=== PATIENT | female | born 1985 | race Caucasian/White ===

== ENCOUNTER 2023-10-01 08:49 | Emergency (ER) | payer SELFPAY ==
--- NOTE | 2023-10-01 09:47 | ED Physician Documentation ---
PD HPI HEADACHE - Stated complaint Stated Complaint: HIGH BP/DIZZY - Chief complaint Chief Complaint: General - History obtained from History obtained from: Patient PD PAST MEDICAL HISTORY - Past Medical History Past Medical History: Yes Cardiovascular: Hypertension (has been borderline or mild hypertension for awhile with health care visits or when takes it at home if feeling stressed. Does not check it when well typically. ), Other Respiratory: None Neuro: None Psych: Depression, Anxiety Other Past Medical History: WPW- corrected at 8 yrs old - Past Surgical History Past Surgical History: Yes Cardiovascular: Other HEENT: Other - Present Medications Home Medications: Ambulatory Orders Medication Instructions Recorded Confirmed Propranolol [Inderal] 10 mg PO DAILY #30 tablet 10/01/23 - Allergies Allergies/Adverse Reactions: Allergies Allergy/AdvReac Type Severity Reaction Status Date / Time No Known Drug Allergies Allergy Verified 10/01/23 08:59 - Living Situation Living Situation: reports: Alone (lies in trailer at parents property. Works as [employer] and has done that for many years. Stress at work and with finances. ) Living Arrangement: reports: At home - Social History Does the pt smoke?: No Smoking Status: Current some day smoker Does the pt drink ETOH?: Yes ETOH Use: Beer (typically 2 daily after work but sometimes more and can be up to 6-8 on weekend. She is concerned about drinking too much. Does not get withdrawal if doesn't drink for few days. ) Does the pt have substance abuse?: No - Immunizations Immunizations are current?: Yes PD ED PE NORMAL - Vitals Vital signs reviewed: Yes - General General: Alert and oriented X 3, Well developed/nourished - Neck Neck: Supple, no meningeal sign, No adenopathy - Cardiac Cardiac: RRR, No murmur - Respiratory Respiratory: Clear bilaterally Results - Vitals Vitals: Vital Signs - 24 hr 10/01/23 10/01/23 08:54 11:17 Temperature 36.1 C L Heart Rate 86 82 Respiratory 20 18 Rate Blood Pressure 189/113 H 171/105 H O2 Saturation 97 100 - Labs Labs: Laboratory Tests 10/01/23 10/01/23 10:35 10:35 WBC 4.9 RBC 4.18 L Hgb 14.1 Hct 41.8 MCV 100.0 H MCH 33.7 H MCHC 33.7 RDW 13.0 Plt Count 228 MPV 9.9 Neut # (Auto) 2.2 Lymph # (Auto) 1.9 [place] # (Auto) 0.5 Eos # (Auto) 0.2 Baso # (Auto) 0.1 Absolute Nucleated RBC 0.00 Nucleated RBC % 0.0 Sodium 137 Potassium 4.5 Chloride 103 Carbon Dioxide 25 Anion Gap 9.0 BUN 14 Creatinine 0.7 Estimated GFR (MDRD) 94 Glucose 82 Calcium 9.5 Total Bilirubin 0.4 AST 51 H ALT 46 Alkaline Phosphatase 60 Total Protein 6.9 Albumin 4.5 Globulin 2.4 Albumin/Globulin Ratio 1.9 Lipase 30 TSH 3.25 PD Medical Decision Making - ED course Complexity details: reviewed results, considered differential (she is concerned about BP. Has had mild HTN readings for awhile. Much higher today. Feeling stressed and anxious about work, finances, living condition. Drinking daily small amount and at times larger. I discussed concept and guidelines of not wanting to bring BP down quickly but treating residential.), d/w patient ED course: She is having social stress with work, finacnes, etc. Living in trailer on family property. Newly hired coworkers are stressful. I think she could benefit from counseling for stress reduction ideas. We talked about possible med for depression and anxiety. She could perhaps benefit from buproprion as she is concerned aobut weight gain from antidpressants "lkke some of my friends have had". Buproprion should be less likely to do that. She would like to start med for BP first and I thought propranolol would be good to try for dual action of BP and anxiety. Otherwise ARB like Losartan for just BP would be more common but not effective for anxiety. Checked basic labs for renal function, lytes and TSH before starting HTN med. These are okay. Departure - Departure Disposition: Home, Self Care Clinical Impression: Elevated blood pressure reading, Anxiety Condition: Stable Record reviewed to determine appropriate education?: Yes Instructions: ED Hypertension New Begin Tx Follow-Up: [facility] [Provider Group] [facility] [Provider Group] [facility] [Provider Group] Prescriptions: Propranolol [Inderal] 10 mg PO DAILY #30 tablet Comments: I wrote a prescription for propranolol 10 mg tablet which is a low-dose starting. I would take it daily to begin with. See how you do with regard to blood pressure. It also is used for anxiety and panic to decrease the adrenaline effect in general. See if its helpful with that as well. I chose this for blood pressure to have the dual effect of both above. It can be increased to twice daily if you are seeing some benefit but not very well. Follow-up with the primary care or walk-in clinic over the next few weeks. Chart how your blood pressure is doing periodically through that time. Determination can be today made to continue with that 1 versus increased dose or a different medication. Other consideration would be whether to add on medication to help with anxiety stress and depression such as bupropion/Wellbutrin. This is used for anxiety and depression and typically does not have weight gain associated with it if that is a concern./The use to decrease cravings and such. I would hold off on the antidepressant medicines at this time as you have suggested to have time to think about it and also see how the propranolol itself works. I sent your prescription to preferred pharmacy. Stay well-hydrated. Try regular exercise if you can. I would suggest perhaps some counseling or such as well to help with stress reduction techniques. Minimize using alcohol to help with the stress; mild use is okay. Forms: PCP List Discharge Date/Time: 10/01/23 11:18
[2023-10-01] MEDS ORDERED: PROPRANOLOL 10 MG TABLET PO STA (10:23)
[2023-10-01 10:42] LABS: BASOPHILS # (AUTO) 0.1 10^3/uL (0.0-0.1); BASOPHILS % (AUTO) 1.8 %; EOSINOPHILS # (AUTO) 0.2 10^3/uL (0.0-0.7); EOSINOPHILS % (AUTO) 3.9 %; HCT - HEMATOCRIT 41.8 % (37.0-47.0); HGB - HEMOGLOBIN 14.1 g/dL (12.0-16.0); LYMPHOCYTES # (AUTO) 1.9 10^3/uL (1.5-3.5); LYMPHOCYTES % (AUTO) 38.8 %; MEAN CORPUSCULAR HEMOGLOBIN 33.7 pg (27.0-31.0); MEAN CORPUSCULAR HGB CONC 33.7 g/dL (32.0-36.0); MEAN PLATELET VOLUME 9.9 fL (7.9-10.8); MONOCYTES # (AUTO) 0.5 10^3/uL (0.0-1.0); NEUTROPHILS # (AUTO) 2.2 10^3/uL (1.5-6.6); NEUTROPHILS % (AUTO) 45.3 %; PLT - PLATELET COUNT 228 10^3/uL (130-450); RED BLOOD COUNT 4.18 10^6/uL (4.20-5.40); WHITE BLOOD COUNT 4.9 x10^3/uL (4.8-10.8)
[2023-10-01 10:56] LABS: ALBUMIN 4.5 g/dL (3.2-5.5); ALBUMIN/GLOBULIN RATIO 1.9 (1.0-2.2); BILIRUBIN,TOTAL 0.4 mg/dL (0.2-1.0); CALCIUM 9.5 mg/dL (8.5-10.3); CREATININE 0.7 mg/dL (0.6-1.3); POTASSIUM 4.5 mmol/L (3.5-4.5); TOTAL PROTEIN 6.9 g/dL (6.4-8.9)
[2023-10-01 11:11] LABS: THYROID STIMULATING HORMONE 3.25 uIU/mL (0.34-5.60)
[2023-10-01 11:19] VITALS: BP 171/105; O2SAT 100
== END 2023-10-01 11:18 | disposition home or self-care (01) ==
LOC: ED 08:49
DX: R03.0 Elevated blood-pressure reading, without diagnosis of hypertension (principal); F41.9 Anxiety disorder, unspecified; F17.200 Nicotine dependence, unspecified, uncomplicated
CPT/HCPCS: 36415; 80053; 83690; 84443; 85025; 99283; 99284; A9270

== ENCOUNTER 2024-07-05 10:36 | Emergency (ER) | payer OTHER ==
--- NOTE | 2024-07-05 10:52 | ED Physician Documentation ---
History of Present Illness - Stated complaint Stated Complaint: ANXIETY/CHEST PAIN - History obtained from History obtained from: Patient - Additonal information Additional information: She has a history of W TPW with remote ablation, no other heart disease. She went to the dentist today to have some fillings done. She had gone last week and her blood pressure was 136/80 or so. Today was quite elevated in the range of 190/100. When she saw the numbers she started to develop chest pain. She still has it to some extent but it is improved. She does feel anxious with this. She went to the clinic and had an EKG done which reportedly showed LVH without ST elevation or depression and she was referred here for further evaluation and treatment. She denies recent travel of significance, pedal edema, calf pain, history of DVT, no OCP or estrogen. PD PAST MEDICAL HISTORY - Past Medical History Cardiovascular: Hypertension (has been borderline or mild hypertension for awhile with health care visits or when takes it at home if feeling stressed. Does not check it when well typically. ), Other Respiratory: None Neuro: None Psych: Depression, Anxiety - Past Surgical History Past Surgical History: Yes Cardiovascular: Other HEENT: Other - Present Medications Home Medications: Ambulatory Orders Medication Instructions Recorded Confirmed hydroCHLOROthiazide [Hydrodiuril] 12.5 mg PO DAILY #90 cap 07/05/24 - Allergies Allergies/Adverse Reactions: Allergies Allergy/AdvReac Type Severity Reaction Status Date / Time No Known Drug Allergies Allergy Verified 10/01/23 08:59 - Social History Does the pt smoke?: No Smoking Status: Current some day smoker Does the pt drink ETOH?: Yes Does the pt have substance abuse?: No - Immunizations Immunizations are current?: Yes PD ED PE NORMAL - Vitals Vital signs reviewed: Yes - General General: Alert and oriented X 3, No acute distress - Cardiac Cardiac: RRR, No murmur - Respiratory Respiratory: No respiratory distress, Clear bilaterally - Abdomen Abdomen: Non tender, Non distended - Extremities Extremities: No edema, No calf tenderness / cord - Neuro Neuro: Alert and oriented X 3 Results - Vitals Vitals: Vital Signs - 24 hr 07/05/24 10:58 Temperature 36.4 C L Heart Rate 69 Respiratory 16 Rate Blood Pressure 177/100 H O2 Saturation 100 Oxygen O2 Source Room air - EKG (time done) 1057 EKG releavant findings:: EKG personally interpreted by author of this note. Relevant findings are: Rate: Rate (enter#) (67) Rhythm: NSR [place]: Normal Intervals: Normal [place] QRS: LVH Ischemia: Normal ST segments - Labs Labs: Laboratory Tests 07/05/24 07/05/24 11:25 11:25 WBC 6.0 RBC 4.04 L Hgb 13.9 Hct 40.3 MCV 99.8 H MCH 34.4 H MCHC 34.5 RDW 12.6 Plt Count 205 MPV 10.0 Neut # (Auto) 3.5 Lymph # (Auto) 1.8 [place] # (Auto) 0.6 Eos # (Auto) 0.1 Baso # (Auto) 0.1 Absolute Nucleated RBC 0.00 Nucleated RBC % 0.0 Sodium 138 Potassium 3.7 Chloride 103 Carbon Dioxide 25 Anion Gap 10.0 BUN 10 Creatinine 0.6 Estimated GFR (MDRD) 112 Glucose 93 Calcium 9.0 Total Bilirubin 0.4 AST 71 H ALT 73 H Alkaline Phosphatase 67 Troponin I High Sens 4.3 Total Protein 7.2 Albumin 4.4 Globulin 2.8 Albumin/Globulin Ratio 1.6 Lipase 20 - Rads (name of study) Single view chest x-ray is unremarkable Relevant Findings:: Final report received, EMP independent interpretation of test PD Medical Decision Making - ED course ED course: PERC negative She presents with atypical chest pain after seeing her blood pressure at the dentist office. She is feeling very anxious and did want something for that and received an IV dose of IV Ativan here. Diagnostic workup demonstrates that she has mild elevation in liver enzymes with signs of LVH on her EKG but no elevation in troponin with a clear chest x-ray. She did want to go ahead and start blood pressure medicine today, she is been on propranolol in the past which made her worse. We talked about side effects and childbearing potential and settled on hydrochlorothiazide after discussion of other antihypertensives. Departure - Departure Disposition: 01 Home, Self Care Clinical Impression: Chest pain Qualifiers: Chest pain type: unspecified Qualified Code(s): R07.9 - Chest pain, unspecified Condition: Good Record reviewed to determine appropriate education?: Yes Instructions: ED Chest Pain NonCardiac Prescriptions: hydroCHLOROthiazide [Hydrodiuril] 12.5 mg PO DAILY #90 cap Comments: As discussed, as far as your heart goes the EKG was potentially suggestive of an enlarged left ventricle. That would not be related to your symptoms today but when you establish with primary care they may order a echocardiogram on you. In the meantime we are starting hydrochlorothiazide which is a blood pressure medicine. I sent that prescription to the [facility] pharmacy at the corner of [address] in [place]. The other testing was all normal with the exception of a mild elevation in your liver enzymes, would recommend you cut back on alcohol. Return for new or worsening symptoms.
[2024-07-05 11:33] LABS: BASOPHILS # (AUTO) 0.1 10^3/uL (0.0-0.1); BASOPHILS % (AUTO) 1.2 %; EOSINOPHILS # (AUTO) 0.1 10^3/uL (0.0-0.7); EOSINOPHILS % (AUTO) 1.7 %; HCT - HEMATOCRIT 40.3 % (37.0-47.0); HGB - HEMOGLOBIN 13.9 g/dL (12.0-16.0); LYMPHOCYTES # (AUTO) 1.8 10^3/uL (1.5-3.5); LYMPHOCYTES % (AUTO) 29.6 %; MEAN CORPUSCULAR HEMOGLOBIN 34.4 pg (27.0-31.0); MEAN CORPUSCULAR HGB CONC 34.5 g/dL (32.0-36.0); MEAN CORPUSCULAR VOLUME 99.8 fL (81.0-99.0); MONOCYTES # (AUTO) 0.6 10^3/uL (0.0-1.0); MONOCYTES % (AUTO) 9.1 %; NEUTROPHILS # (AUTO) 3.5 10^3/uL (1.5-6.6); NEUTROPHILS % (AUTO) 58.2 %; PLT - PLATELET COUNT 205 10^3/uL (130-450); RED BLOOD COUNT 4.04 10^6/uL (4.20-5.40); RED CELL DISTRIBUTION WIDTH 12.6 % (12.0-15.0)
[2024-07-05] MEDS: LORazepam 2 MG/ML VIAL IVP STA (11:46)
[2024-07-05 11:55] LABS: ALBUMIN 4.4 g/dL (3.2-5.5); ALBUMIN/GLOBULIN RATIO 1.6 (1.0-2.2); BILIRUBIN,TOTAL 0.4 mg/dL (0.2-1.0); CREATININE 0.6 mg/dL (0.6-1.3); POTASSIUM 3.7 mmol/L (3.5-4.5); TOTAL PROTEIN 7.2 g/dL (6.4-8.9)
[2024-07-05 11:59] LABS: TROPONIN I HIGH SENSITIVITY 4.3 ng/L (2.3-14.8)
--- NOTE | 2024-07-05 12:04 | XRAY Report ---
PROCEDURE: Chest 1V INDICATIONS: Chest Pain TECHNIQUE: One view of the chest was acquired. COMPARISON: None. FINDINGS: Surgical changes and devices: None. Lungs and pleura: No pleural effusions or pneumothorax. Lungs are clear. Mediastinum: Mediastinal contours appear normal. Heart size is normal. Bones and chest wall: No suspicious bony lesions. Overlying soft tissues appear unremarkable. IMPRESSION: No acute cardiopulmonary process. Reviewed by: Davis Ochoa MD on 07/05/2024 12:03 PM PDT Approved by: Davis Ochoa MD on 07/05/2024 12:03 PM PDT Station ID: [id number]
[2024-07-05 12:32] VITALS: BP 175/103; O2SAT 99
== END 2024-07-05 12:28 | disposition home or self-care (01) ==
LOC: ED 10:36
DX: R07.9 Chest pain, unspecified (principal); I11.9 Hypertensive heart disease without heart failure; F41.9 Anxiety disorder, unspecified; F17.200 Nicotine dependence, unspecified, uncomplicated
CPT/HCPCS: 36415; 71045; 80053; 83690; 84484; 85025; 93005; 96374; 99284; 99285; J2060

== ENCOUNTER 2024-07-27 09:59 | Outpatient (CLI) | payer OTHER ==
[2024-07-27 10:15] LABS: BASOPHILS # (AUTO) 0.1 10^3/uL (0.0-0.1); EOSINOPHILS # (AUTO) 0.2 10^3/uL (0.0-0.7); HCT - HEMATOCRIT 41.5 % (37.0-47.0); HGB - HEMOGLOBIN 13.8 g/dL (12.0-16.0); LYMPHOCYTES # (AUTO) 1.7 10^3/uL (1.5-3.5); LYMPHOCYTES % (AUTO) 32.2 %; MEAN CORPUSCULAR HEMOGLOBIN 34.2 pg (27.0-31.0); MEAN CORPUSCULAR HGB CONC 33.3 g/dL (32.0-36.0); MEAN CORPUSCULAR VOLUME 102.7 fL (81.0-99.0); MONOCYTES # (AUTO) 0.5 10^3/uL (0.0-1.0); MONOCYTES % (AUTO) 9.1 %; NEUTROPHILS # (AUTO) 2.9 10^3/uL (1.5-6.6); NEUTROPHILS % (AUTO) 54.5 %; PLT - PLATELET COUNT 220 10^3/uL (130-450); RED BLOOD COUNT 4.04 10^6/uL (4.20-5.40); RED CELL DISTRIBUTION WIDTH 12.1 % (12.0-15.0); WHITE BLOOD COUNT 5.3 x10^3/uL (4.8-10.8)
[2024-07-27 10:33] LABS: ALBUMIN 4.7 g/dL (3.2-5.5); ALBUMIN/GLOBULIN RATIO 1.7 (1.0-2.2); ALKALINE PHOSPHATASE 55 IU/L (42-121); ALT ALANINE AMINOTRANSFERASE 45 IU/L (10-60); AST ASPARTATE AMINOTRANSFERASE 37 IU/L (10-42); BILIRUBIN,TOTAL 0.7 mg/dL (0.2-1.0); BUN - BLOOD UREA NITROGEN 9 mg/dL (6-20); CALCIUM 9.7 mg/dL (8.5-10.3); CARBON DIOXIDE - CO2 27 mmol/L (21-32); CHLORIDE 103 mmol/L (101-111); CHOLESTEROL 210 mg/dL; CREATININE 0.6 mg/dL (0.6-1.3); GFR - MDRD 112 (>89); GLUCOSE 107 mg/dL (74-104); HDL CHOLESTEROL 69 mg/dL; LDL CHOLESTEROL,CALCULATED 93 mg/dL; LDL/HDL RATIO 1.3 (<4.4); SODIUM 136 mmol/L (135-145); TOTAL PROTEIN 7.4 g/dL (6.4-8.9); TRIGLYCERIDES 239 mg/dL; VLDL CHOLESTEROL 48 mg/dL
[2024-07-27 10:47] LABS: THYROID STIMULATING HORMONE 2.83 uIU/mL (0.34-5.60)
== END 2024-07-27 10:00 | disposition home or self-care (01) ==
LOC: LAB 09:59
PROVIDERS: ATTEND Nurse Practitioner Family
DX: R74.8 Abnormal levels of other serum enzymes (principal); R03.0 Elevated blood-pressure reading, without diagnosis of hypertension; F41.9 Anxiety disorder, unspecified
CPT/HCPCS: 36415; 80053; 80061; 83721; 84443; 85025